=== PATIENT | female | born 1985 | race Caucasian/White ===

== ENCOUNTER 2017-09-28 00:30 | Inpatient (IN) | payer OTHER ==
--- NOTE | 2017-09-28 01:16 | PR ---
[facility] [address] [facility] [place], [place] [address] Signed Progress Notes IP Datetime Report Generated by CPN: 09/28/2017 01:16 PROGRESS NOTES: [id number] Impression: Normal progression of labor Procedures: Artificial ROM Plan: Continue present management; Anticipate Vaginal Delivery VITAL SIGNS: [id number] Vital Signs: Reviewed; Within Normal Limits EXAM: [id number] Dilatation: 8.0 Effacement: 90 Station: -2 MEMBRANES: [id number] Membrane Status: Ruptured Amniotic Fluid Color: Meconium, Light ROM Note: AROM without problem, very thin meconium Comments: Doing well with contractions Fetus A: [id number] FHR Baseline: 120 Variability: Moderate 6-25bpm Decelerations: Variable Presentation: Vertex Fetus B: [id number] Signing Physician: Hemal Alas MD Copies: ~ *Electronically Signed* 09/28/17 0116 HEMAL ALAS MD PATIENT NAME: NADER BOWDEN PROGRESS NOTE DATE OF : 89 PHYSICIAN: HEMAL ALAS MD RPT #: [id number] REPORT IS CONFIDENTIAL AND NOT TO BE RELEASED WITHOUT AUTHORIZATION
--- NOTE | 2017-09-28 01:39 | PR ---
[facility] [address] [facility] [place], [place] [address] Signed Progress Notes IP Datetime Report Generated by CPN: 09/28/2017 01:39 PROGRESS NOTES: [id number] Impression: Normal progression of labor Procedures: Artificial ROM Plan: Continue present management; Anticipate Vaginal Delivery VITAL SIGNS: [id number] Vital Signs: Reviewed; Within Normal Limits EXAM: [id number] Dilatation: 8.0 Effacement: 90 Station: -1 Uterine Contractions: every 3-7 minutes MEMBRANES: [id number] Membrane Status: Ruptured Amniotic Fluid Color: Meconium, Light ROM Note: AROM without problem, very thin meconium Comments: Tolerating contractions well. Continue plan of NCB Fetus A: [id number] FHR Baseline: 120 Variability: Moderate 6-25bpm Accelerations: 15X15 Decelerations: Variable Presentation: Vertex Fetus B: [id number] Signing Physician: Hemal Alas MD Copies: ~ *Electronically Signed* 09/28/17 0139 HEMAL ALAS MD PATIENT NAME: NADER BOWDEN PROGRESS NOTE DATE OF : 89 PHYSICIAN: HEMAL ALAS MD RPT #: [id number] REPORT IS CONFIDENTIAL AND NOT TO BE RELEASED WITHOUT AUTHORIZATION
[2017-09-28] MEDS ORDERED: PRENATAL VITAM1 EAC7 PO (02:47)
--- NOTE | 2017-09-28 02:59 | PR ---
[facility] [address] [facility] [place], [place] [address] Signed Progress Notes IP Datetime Report Generated by CPN: 09/28/2017 02:59 PROGRESS NOTES: [id number] Impression: Slow Progression of Labor Procedures: Scalp Electrode Plan: Continue present management VITAL SIGNS: [id number] Vital Signs: Reviewed; Within Normal Limits EXAM: [id number] Dilatation: 8.0 Effacement: 90 Station: -1 Uterine Contractions: every 2-3 minutes MEMBRANES: [id number] Membrane Status: Ruptured Amniotic Fluid Color: Meconium, Light ROM Note: AROM without problem, very thin meconium Comments: Getting very uncomfortable, have tried standing and "hand-knees" Patient requesting Epidural - Anesthesia called Fetus A: [id number] FHR Baseline: 115 Variability: Moderate 6-25bpm Accelerations: 15X15 Decelerations: Early; Variable Presentation: Vertex Fetus B: [id number] Signing Physician: Dustin Alas MD Copies: ~ *Electronically Signed* 09/28/17 0259 DUSTIN ALAS MD PATIENT NAME: NADER BOWDEN GRETCHEN PROGRESS NOTE DATE OF : 89 PHYSICIAN: DUSTIN ALAS MD RPT #: [id number] REPORT IS CONFIDENTIAL AND NOT TO BE RELEASED WITHOUT AUTHORIZATION
--- NOTE | 2017-09-29 13:17 | PR ---
[facility] [address] [facility] [place] [address] Signed PP Progress Notes Datetime Report Generated by CPN: 09/29/2017 13:16 SUBJECTIVE: [id number] Pain: Within normal limits Nausea/Vomiting: Denies Vital Signs: [id number] Vital Signs: Reviewed; Within Normal Limits Notable Details: PP Hgb/Hct = 10.5/31.5 EXAM: [id number] Abdomen/Uterus: Normal Lochia: Normal Extremities: Normal IMPRESSION/PLAN/PROCEDURES: [id number] Impression: Normal progression Plan: Continue present management Procedures: None Progress Notes: Doing well, without complaint. Signing Physician: Hemal Alas MD Copies: ~ *Electronically Signed* 09/29/17 1316 HEMAL ALAS MD PATIENT NAME: NADER BOWDEN PROGRESS NOTE DATE OF : 89 PHYSICIAN: HEMAL ALAS MD RPT #: [id number] REPORT IS CONFIDENTIAL AND NOT TO BE RELEASED WITHOUT AUTHORIZATION
--- NOTE | 2017-09-30 12:14 | PR ---
[facility] [address] [facility] [place] [address] Signed PP Progress Notes Datetime Report Generated by CPN: 09/30/2017 12:14 SUBJECTIVE: [id number] Pain: Within normal limits Nausea/Vomiting: Denies Vital Signs: [id number] Vital Signs: Reviewed; Within Normal Limits Notable Details: PP Hgb/Hct = 10.5/31.5 EXAM: [id number] Abdomen/Uterus: Normal Lochia: Normal Extremities: Normal IMPRESSION/PLAN/PROCEDURES: [id number] Impression: Normal progression Plan: Discharge Procedures: None Progress Notes: Doing well, ready to go home. Signing Physician: Hemal Alas MD Copies: ~ *Electronically Signed* 09/30/17 1214 HEMAL ALAS MD PATIENT NAME: NADER BOWDEN PROGRESS NOTE DATE OF : 89 PHYSICIAN: HEMAL ALAS MD RPT #: [id number] REPORT IS CONFIDENTIAL AND NOT TO BE RELEASED WITHOUT AUTHORIZATION
== END 2017-09-30 15:20 | disposition home or self-care (01) | DRG 775 ==
LOC: FBCO 00:30 → FBC 00:45
PROVIDERS: ADMIT General Practice
PROC: 10E0XZZ Delivery of Products of Conception, External Approach (ICD-10-PCS; principal; 2017-09-28)
PROC: 0KQM0ZZ Repair Perineum Muscle, Open Approach (ICD-10-PCS; 2017-09-28)
PROC: 10907ZC Drainage of Amniotic Fluid, Therapeutic from Products of Conception, Via Natural or Artificial Opening (ICD-10-PCS; 2017-09-28)
DX: O48.0 Post-term pregnancy (principal); O76 Abnormality in fetal heart rate and rhythm complicating labor and delivery; O77.0 Labor and delivery complicated by meconium in amniotic fluid; O70.1 Second degree perineal laceration during delivery; Z88.0 Allergy status to penicillin; Z3A.41 41 weeks gestation of pregnancy; Z37.0 Single live birth
CPT/HCPCS: 36415; 85027; J2590; J2795; J3010